=== PATIENT | female | born 1990 | race Caucasian/White ===

== ENCOUNTER 2019-04-07 05:54 | Emergency (ER) | payer MEDICAID, OTHER ==
[2019-04-07] MEDS ORDERED: KETOROLAC 30 MG/ML VIAL IM ONE (06:12)
--- NOTE | 2019-04-07 06:17 | Emergency Department Record ---
History of Present Illness - General Chief Complaint: Neck Injury/Pain Stated Complaint: NECK PAIN Time Seen by Provider: 04/07/19 06:00 Source: Patient Mode of Arrival: Ambulatory Limitations: No limitations - History of Present Illness Initial Comments: The patient is here due to neck pain for 10 days. She woke up with it 10 days ago and it has been getting progressively worse since then. The patient denies any trauma, injury, or fall and states the pain is worse with bending and twisting the head and neck to the R. There is no radiation of the pain to the arms and she denies any arm or leg numbness, weakness, or any bowel or bladder issues. The patient states she has no hx of similar issues and no significant head pain, or any dizziness, visual changes, nausea or trouble swallowing. MD Complaint: Neck pain, Upper back pain Onset/Timin -: Days(s) Place: Home Radiation: Right shoulder, Upper back Severity: Moderate, Constant Severity scale (1-10): 8 Quality: Sharp, Tingling Consistency: Constant, Getting worse Improves With: None Worsens With: Movement of extremity, Movement of neck Context: Other Associated Symptoms: None Treatments Prior to Arrival: Acetaminophen, Ibuprofen, Naproxen, Heat therapy - Related Data Previous Rx's Medication Instructions Recorded Cyclobenzaprine HCl [Flexeril] 10 mg PO TID PRN #20 tablet 04/07/19 Naproxen [Naprosyn] 500 mg PO BID #14 tablet. 04/07/19 Allergies Allergy/AdvReac Type Severity Reaction Status Date / Time No Known Drug Allergies Allergy Verified 04/07/19 06:07 Travel Screening - Travel/Exposure Within Last 30 Days Have you traveled within the last 30 days?: No - Travel/Exposure Within Last Year Have you traveled outside the [place] in the last year?: No - Additonal Travel Details Have you been exposed to anyone with a communicable illness?: No - Travel Symptoms Symptom Screening: None Review of Systems Constitutional: Denies: Chills, Fever Eyes: Denies: Eye discharge ENT: Denies: Congestion Respiratory: Denies: Cough, Dyspnea Cardiovascular: Denies: Chest pain Endocrine: Denies: Fatigue Past Medical History - SOCIAL HISTORY Smoking Status: Never smoker Alcohol Use: Rare Drug Use: None - RESPIRATORY Hx Respiratory Disorders: No - CARDIOVASCULAR Hx Cardio Disorders: No - NEURO Hx Neuro Disorders: No - GI Hx GI Disorders: No - Hx Genitourinary Disorders: No - ENDOCRINE Hx Endocrine Disorders: No - MUSCULOSKELETAL Hx Musculoskeletal Disorders: No - PSYCH Hx Psych Problems: No - HEMATOLOGY/ONCOLOGY Hx Hematology/Oncology Disorders: No Family Medical History Any Significant Family History?: No Physical Exam - General General Appearance: Alert, Oriented x3, Cooperative, No acute distress (The patient is very calm and cooperative and clearly nontoxic.) - Head Head exam: Atraumatic, Normocephalic - Eye Eye exam: Normal appearance, PERRL, EOMI. negative: Conjunctival injection - ENT Throat exam: Normal inspection. negative: Tonsillar erythema, Tonsillar exudate - Neck Neck exam: Normal inspection, Full ROM, Tenderness (The pain is 100% repro ducible with palpation of the R Trapezius muscle. There is no swelling or bruising or erythema over the affected area.). negative: Lymphadenopathy, Meningismus - Respiratory Respiratory exam: Normal lung sounds bilaterally. negative: Respiratory distress - Cardiovascular Cardiovascular Exam: Regular rate, Normal rhythm, Normal heart sounds - GI/Abdominal GI/Abdominal exam: Soft, Normal bowel sounds. negative: Tenderness - Extremities Extremities exam: Normal inspection, Full ROM, Normal capillary refill. negative: Tenderness Image of Full Body: 1 - Area of neck pain and reproducible tenderness. - Back Back exam: Reports: Paraspinal tenderness (Over the R lateral posterior neck area.). Denies: Vertebral tenderness - Neurological Neurological exam: Alert, Normal gait, Oriented X3, Reflexes normal. negative: Abnormal gait, Altered, Motor sensory deficit - Psychiatric Psychiatric exam: negative: Anxious Course Vital Signs 04/07/19 06:01 Temperature 97.9 F Pulse Rate 82 Respiratory 18 Rate Blood Pressure 124/85 Pulse Ox 99 - Reevaluation(s) Reevaluation #1: The patient is doing better at this time. She is moving her neck much better already and feels comfortable going home. I did discuss the need to keep her appointment with her doctor for Saturday and to take the pain medicines as directed. 04/07/19 06:37 Disposition Disposition: Discharge Clinical Impression: Neck muscle strain Qualifiers: Encounter type: initial encounter Qualified Code(s): S16.1XXA - Strain of muscle, fascia and tendon at neck level, initial encounter Disposition: Home, Self-Care Condition: (2) Stable Instructions: Muscle Strain (ED) Additional Instructions: Please take the Naprosyn and Flexeril as directed. Use moist heat to the area when possible. Please keep your appointment with your doctor for Saturday of this week. Return to the ER for any worsening pain, fever, arm or leg weakness or numbness or any bowel or bladder issues. Prescriptions: Cyclobenzaprine HCl [Flexeril] 10 mg PO TID PRN #20 tablet PRN Reason: Pain Naproxen [Naprosyn] 500 mg PO BID #14 tablet.dr Forms: Patient Portal Access Time of Disposition: 06:34 Quality - Quality Measures Quality Measures: N/A - Blood Pressure Screening View Details: Yes Does Patient Have Any of the Following: No Blood Pressure Classification: Pre-Hypertensive BP Reading Systolic Measurement: 124 Diastolic Measurement: 85 Screening for High Blood Pressure: < Pre-Hypertensive BP, F/U Documented > [[id number]] Pre-Hypertensive Follow-up Interventions: Referral to alternative/primary care provider.
== END 2019-04-07 06:45 | disposition home or self-care (01) ==
LOC: ER 05:54
DX: S16.1XXA Strain of muscle, fascia and tendon at neck level, initial encounter (principal); M54.6 Pain in thoracic spine; X58.XXXA Exposure to other specified factors, initial encounter; Y92.009 Unspecified place in unspecified non-institutional (private) residence as the place of occurrence of the external cause
CPT/HCPCS: 99284 ×2; 96372; J1885